=== PATIENT | male | born 2000 | race Caucasian/White ===

== ENCOUNTER 2024-02-26 09:45 | Emergency (ER) | payer OTHER | END 2024-02-26 11:58 | disposition home or self-care (01) | LOC: MW.ED 09:45 | DX: S16.1XXA Strain of muscle, fascia and tendon at neck level, initial encounter (principal); Z88.8 Allergy status to other drugs, medicaments and biological substances; Z75.8 Other problems related to medical facilities and other health care; V89.2XXA Person injured in unspecified motor-vehicle accident, traffic, initial encounter | CPT/HCPCS: 71046; 71046-26; 72125; 72125-26; 99283; 99284 ==